=== PATIENT | female | born 1965 | race African-American/Black ===

== ENCOUNTER 2017-01-27 02:06 | Inpatient (IN) ==
[2017-01-27] MEDS ORDERED: ALUM/MAG/SIMETH/LIDO VISC 1:1 30 ML BOTTLE PO STA (03:26)
[2017-01-27] MEDS ORDERED: SODIUM CHLORIDE 0.9% 500 ML IV STA (03:26)
[2017-01-27] MEDS ORDERED: PANTOPRAZOLE 40 MG VIAL IV STA (03:26)
--- NOTE | 2017-01-27 03:28 | Emergency Department Note ---
Pérez Bhatia Brooke, am scribing for, and in the presence of, Perfecto Wheeler MD 03 :26. Summer Bhatia Charles R, MD, personally performed the services described in this documentation, ascribed by Yana Ortez in my presence, and it is both accurate and complete 328 . Arrival - Arrival Chief Complaint: Abdominal / Flank Pain Stated Complaint: abd pain ED Nursing Triage Note: tx from [facility] with poss gallstones Mode of Arrival: Stretcher Limitations: No Limitations Source: Patient, EMS, RN Notes Reviewed Time Seen by Provider: 01/27/17 02:12 - History of Present Illness HPI Narrative: Patient is a 51 year old female brought into the ED by EMS, from [facility], for further evaluation of possible gallstones. Patient is complaining of epigastric and middle abdominal pain that started tonight. Patient says she ate some banana pudding and took her medications, and about 15 minutes later, the pain started. She has never experienced this in the past. She denies any abdominal bloating, flatulence, or constipation. Patient has no other complaints. She has PMHx of HTN, diabetes, and "lung problems." Patient has home breathing treatments for the lung problems. Review of System - Review of System 12 point system: reviewed and no additional remarkable complaints except as stated - Review of System Constitutional: Absent: fever Respiratory: Absent: respiratory distress Gastrointestinal: Present: abdominal pain (middle and epigastric). Absent: constipation Skin: Absent: rash Medical,Surgical,& Family Hx - Social History Smoking Status: Never smoker Frequency of Alcohol Use: None Type of Drug Use: None Exam Vital Signs: Vital Signs Temperature 96.9 F L 01/27/17 02:07 Pulse Rate 93 H 01/27/17 02:07 Respiratory Rate 20 01/27/17 02:07 O2 Sat by Pulse Oximetry 99 01/27/17 02:07 - General General appearance: alert, in no apparent distress - Head Head exam: Present: atraumatic, normocephalic - Eye Eye exam: Present: normal appearance, PERRL, EOMI - ENT ENT exam: Present: normal exam - Neck Neck exam: Present: normal inspection - Chest Chest inspection: Present: normal inspection, symmetric chest wall rise - Respiratory Respiratory exam: Present: normal lung sounds bilaterally - Cardiovascular Cardiovascular exam: Present: regular rate, normal rhythm, normal heart sounds - Abdominal Exam Abdominal exam: Present: soft, tenderness (Epigatric and mid-abdomial tenderness ), hypoactive bowel sounds. Absent: distention - Extremities Exam Extremities exam: Present: pedal edema (+1 bilateral lower extremities) - Back Exam Back exam: Present: normal inspection - Neurological Exam Neurological exam: Present: alert, oriented X3 - Psychiatric Psychiatric exam: Present: normal affect, normal mood - Skin Skin exam: Present: warm, dry, intact, normal color Course - Consultations Consultation #1: Dr. Dominugez consult that he wants a gallbladder ultrasound done first before he admits the patient to the hospital Time: 03:28 Consultation #2: Patient has cholelithiasis on ultrasound spoke to Dr. Orlandoon is in place patient hospital for HIDA scan no antibiotic need to be given at this time per Dr. Dominguez Time: 05:44 Results - Labs CBC & BMP: 01/27/17 03:36 01/27/17 03:36 Lab Results: I have reviewed the patients labs Labs: Laboratory Tests 01/27/17 03:36 WBC 12.6 H RBC 4.79 MCV 76.6 L MCH 23 L MCHC 30.0 L Plt Count 430 H MPV 9.4 L Neut % (Auto) 81.8 H Lymph % (Auto) 11.9 L Neut # (Auto) 10.3 H Laboratory Tests 01/27/17 01/27/17 03:36 03:36 Potassium 3.4 L Creatinine 1.10 H Glucose 198 H Magnesium 1.7 L AST 190 H ALT 141 H Troponin I 0.048 H Globulin 3.7 H Albumin/Globulin Ratio 1.0 L Urine Blood Small Urine Urobilinogen < 2.0 H Disposition Clinical Impression: Abdominal pain, Biliary colic, Cholelithiasis Case discussed with: patient Disposition: Still a Patient Condition: Stable Time of Disposition: 05:45
[2017-01-27] MEDS ORDERED: ALUM/MAG/SIMETH/LIDO VISC 1:1 30 ML BOTTLE PO ONE (03:33)
[2017-01-27] MEDS ORDERED: PANTOPRAZOLE 40 MG VIAL IV ONE (03:33)
[2017-01-27 03:56] LABS: Basophils % 0.2 % (0.0-0.8); Hematocrit 36.7 VOL% (35.7-47.0); Immature Granulocytes % 0.6 %; Immature Granulocytes Absolute 0.07 #; Lymphocytes # 1.5 10*3/uL (1.4-4.0); Lymphocytes % 11.9 % (21.3-54.2); Mean Corpuscular Hemoglobin 23 PG (27-34); Mean Corpuscular Volume 76.6 FL (87-102); Mean Platelet Volume 9.4 FL (9.6-12.0); Monocytes # 0.7 10*3/uL (0.11-0.8); Monocytes % 5.5 % (1.7-12.7); Neutrophils # 10.3 10*3/uL (1.4-7.4); Neutrophils % 81.8 % (38.7-73.9); Platelet Count 430 T/CUMM (130-400); Red Blood Count 4.79 MC/CUMM (3.8-5.5); Red Cell Distribution Width 15.5 % (9.3-17.3); White Blood Count 12.6 T/CUMM (4-12)
[2017-01-27 03:59] LABS: Apearance,Urine CLEAR (Clear); Bacteria,Urine Occasional /HPF (Few); Bilirubin,Urine Negative (Negative); Blood, Urine Small mg/dL (Negative); Glucose,Urine (UA) >=500 mg/dL (Negative); Ketones,Urine 5 mg/dL (Negative); Mucus,Urine Occasional /LPF (Occasional); Nitrite,Urine Negative (Negative); Protein,Urine Negative; RBC,Urine 2 /HPF (0-4); Squamous Epithelial Cell,Urine Occasional /HPF (0-10); Urine Color Straw (Yellow); Urine Specific Gravity 1.033 (1.001-1.035); Urine Urobilinogen < 2.0 EU/DL (0.2-1.0); WBC,Urine 7 /HPF (0-6)
[2017-01-27 04:42] LABS: Albumin 3.9 G/DL (3.4-5.0); Bilirubin,Total 0.6 MG/DL (0.2-1.0); Calcium 8.9 MG/DL (8.5-10.1); Magnesium 1.7 MG/DL (1.8-2.4); Osmolality,Calculated 288.3 MOS/KG (273-304); Potassium 3.4 MMOL/L (3.5-5.1); Total Protein 7.6 G/DL (6.4-8.3); Troponin I Only 0.048 NG/ML (0.00-0.045)
[2017-01-27] MEDS ORDERED: POTASSIUM CHLORIDE 20 MEQ TABLET PO STA (05:44)
[2017-01-27] MEDS ORDERED: MAGNESIUM SULF RIDER 2 GM in PREMIX 1 EACH IV STA (05:44)
[2017-01-27] MEDS ORDERED: MAGNESIUM SULF RIDER 50 ML IV ONE (05:51)
[2017-01-27] MEDS ORDERED: POTASSIUM CHLORIDE 20 MEQ TABLET PO ONE (05:51)
[2017-01-27] MEDS ORDERED: ONDANSETRON 4 MG/2 ML VIAL IV PRN (06:49)
[2017-01-27] MEDS ORDERED: HYDROmorphone 2 MG/1 ML VIAL IV PRN (06:49)
[2017-01-27] MEDS ORDERED: GLUCAGON 1 MG VIAL IM PRN (06:49)
[2017-01-27] MEDS ORDERED: DEXTROSE 50% 25 GM/50 ML VIAL IV PRN (06:49)
[2017-01-27] MEDS ORDERED: ACETAMINOPHEN 325 MG TABLET PO PRN (06:49)
[2017-01-27] MEDS: SODIUM CHLORIDE 0.9% 1,000 ML IV SCH ×2 (07:11→17:10)
[2017-01-27] MEDS: INSULIN REGULAR 100 UNIT/ML SUBCUT SCH ×4 (07:30→21:13)
--- NOTE | 2017-01-27 08:31 | Ultrasound Report ---
History: Right upper quadrant pain. Gallbladder stone Date: 01/27/2017 Study: Gallbladder ultrasound Comparison exam: CT abdomen 01/27/2017 The study was also reviewed by [facility]. Real-time ultrasound images are captured and archived. The liver measures mildly enlarged at 18 cm length. There are minimally increased echoes throughout the hepatic parenchyma compatible with mild diffuse fatty infiltration of the liver. There is hepatopedal flow in the portal vein. There is no abnormal biliary dilatation. The common bile duct measures 5.2 mm diameter. There is a highly echogenic focus with posterior acoustic shadowing compatible with gallstone, measuring at least 3.4 cm maximum diameter. There is no gallbladder wall thickening or abnormal pericholecystic fluid. The pancreas is obscured by bowel gas. The right kidney measures 12.2 cm length and is without mass lesion or hydronephrosis. There is a punctate focus of increased echogenicity compatible with nephrocalcinosis in the mid to upper right kidney, measuring approximately 8 mm Impression: Cholelithiasis with negative sonographic Hagan sign and no gallbladder wall thickening Focal nephrocalcinosis right kidney Mild hepatomegaly. Fatty liver PROCEDURE INTERPRETED AT [facility] DEPARTMENT OF RADIOLOGY Final Report Signed by: Dr. Katerin Mccray
--- NOTE | 2017-01-27 08:39 | XRay Report ---
History: Right upper quadrant abdominal pain. Gallstone Date: 01/27/2017 Study: Chest x-ray AP portable Comparison exam: January 19, 2012 chest x-ray The cardiomediastinal silhouette and pulmonary vasculature are unremarkable. The lungs and pleural spaces are clear. The osseous structures are unremarkable. Impression: No acute cardiopulmonary process. No significant interval change PROCEDURE INTERPRETED AT [facility] DEPARTMENT OF RADIOLOGY Final Report Signed by: Dr. Katerin Mccray
--- NOTE | 2017-01-27 10:28 | Nuclear Medicine Report ---
History: Biliary colic Date: 01/27/2017 Study: Nuclear medicine hepatobiliary scan with gallbladder ejection fraction Comparison exam: No previous Following the IV administration of 5 mCi technetium 99m Choletec, there is homogeneous uptake of the radiotracer by the liver. There is visualization of duodenal activity at 5 minutes and of gallbladder activity at 15 minutes. Gallbladder ejection fraction was also measured for 40 minutes after the oral ingestion of 8 ounces of ensure. The gallbladder ejection fraction measures 100% Impression: Normal study to include gallbladder ejection fraction of 100% PROCEDURE INTERPRETED AT [facility] DEPARTMENT OF RADIOLOGY Final Report Signed by: Dr. Katerin Mccray
--- NOTE | 2017-01-27 10:40 | EKG Report ---
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
--- NOTE | 2017-01-27 10:40 | Cardiology Consult Note ---
History of Present Illness - Data of Consult Patient: new to practice - Consult Narrative History of present illness: Cardiology consult 51-year-old woman a banana pudding yesterday and 15 minutes later developed severe abdominal pain which she described as worse than labor pain. She feels better today but still has tenderness in the right upper quadrant to palpation. EKG shows sinus rhythm with late transition and ST-T wave changes. Chest x- ray is negative. Troponin is 0.048. The patient had normal coronary arteries and ejection fraction of 60% by cardiac cath January 20, [address] Vazquez. She denies exertional angina syncope or leg edema. She does have chronic dyspnea. She is a lifetime non-smoker and nondrinker. She has been told in the past that she has COPD by Dr. Fregoso. She does have chronic dyspnea. She is quite sedentary. She is a type II diabetic and takes glyburide and metformin. She also has chronic hypertension takes Lopressor, losartan and Norvasc. She also has GE reflux symptoms take Zantac daily. She denies melena. She denies any document history of peptic ulcer disease. Patient is followed at the [place] [facility]. Her mother is 67 years old and has hypertension diabetes and coronary stent her father is 73 and has hypertension and diabetes. Her brother is 49 and an alcoholic. Her only surgery was tonsillectomy. Lab data White count 12.6 hemoglobin 11.0 hematocrit 36.7 Sodium 141 potassium 3.4 chloride 103 CO2 20 BUN 17 creatinine 1.10 Glucose 198 magnesium 1.7 lipase 145 Troponin 0.0 40 Abdominal ultrasound showed gallstones and fatty infiltration of the liver. HIDA scan is pending. UA shows 7 white cells, 2 red cells, occasional bacteria and urine culture is pending. Blood pressure 150/80 pulse 96 and regular aspirations 18 bilateral arcus no xanthelasma flat neck veins no carotid bruit clear lungs. Rhythm is regular. No murmur or gallop. Abdomen obese soft and mildly tender in the right upper quadrant Femoral pulses 2+ without bruit distal pulses 2+ no edema Impression Gallstones with biliary colic HIDA scan is pending Normal coronary arteries and ejection fraction 60% by cardiac cath January 20, [address] Vazquez. No history of angina CHF or syncope. Chronic GE reflux on Zantac Lifetime non-smoker and nondrinker Type 2 diabetes on glyburide and metformin Chronic hypertension Chronic dyspnea Sedentary 5 feet 9 inches tall, 255 pounds UA shows some white cells and red cells and occasional bacteria, urine culture pending Trivial troponin 0.048 I do not suspect that this is a cardiac event Plan Echo Repeat troponin HIDA scan pending Urine culture pending CC: Renan Dominguez MD - Home Medications and Allergies Allergies/Adverse Reactions: Allergies Allergy/AdvReac Type Severity Reaction Status Date / Time No Known Allergies Allergy Unverified 01/27/17 06:19 Medical,Surgical,& Family Hx - Social History Smoking Status: Never smoker Frequency of Alcohol Use: None Type of Drug Use: None Physical Examination Vital Signs Temp Pulse Resp BP Pulse Ox 96.9 F L 93 H 20 143/85 99 01/27/17 02:07 01/27/17 02:07 01/27/17 02:07 01/27/17 02:07 01/27/17 02:07 Result/EKG - Labs CBC & BMP: 01/27/17 03:36 01/27/17 03:36
--- NOTE | 2017-01-27 11:27 | General Surg History&Physical ---
Assessment and Plan (1) Abdominal pain Status: Acute Assessment and plan: Cholelithiasis noted, but no evidence of cholecystitis or obstruction on current imaging. Patient is appears to be more symptomatic in the epigastric region and with history of her suspect possible gastritis. Will consult gastroenterology for further evaluation and recommendations. We appreciate their input. Can consider advancing diet as try once we know with gastroenterology plan is. We will also check H pylori and fecal occult blood. Current Visit: Yes (2) Hepatomegaly Status: Acute Assessment and plan: Hepatomegaly instantly noted on ultrasound with fatty infiltrate. AST and ALT are elevated on routine screening. We will check hepatitis panel and HIV as well. Gastroenterology input additionally appreciated. Current Visit: Yes (3) Elevated troponin Status: Acute Assessment and plan: Marginal elevation. Patient is asymptomatic. We will trend cardiac enzymes and appreciate cardiology consultation. Current Visit: Yes (4) Anemia Status: Acute Assessment and plan: Patient reports history of iron deficiency anemia and takes iron supplementation at home. Current anemia is microcytic hypochromic. Continue iron and vitamin C supplementation. Follow up on GI recommendations as above. Monitor. Anemia profile in am. Current Visit: Yes Qualifiers: Iron deficiency anemia type: unspecified iron deficiency (5) Diabetes mellitus type 2 in obese Status: Acute Assessment and plan: Continue glyburide and hold metformin. Low-dose sliding scale Current Visit: Yes (6) Hypertension Status: Acute Assessment and plan: Resume home meds and monitor Current Visit: Yes (7) COPD (chronic obstructive pulmonary disease) Status: Acute Assessment and plan: Resume home meds and monitor. No evidence of flare. Current Visit: Yes (8) Prophylactic measure Status: Acute Assessment and plan: #1 DVT prophylaxis: JJ nagel. Hold chemoprophylaxis with current anemia. #2 GI prophylaxis PPI daily #3 dispo: pending further assessement Current Visit: Yes History of Present Illness Chief complaint: Epigastric pain History of present illness: Ms. Hunt is a 51 year old female with past medical history of hypertension, diabetes mellitus, GERD, and COPD who reports acute onset of severe abdominal pain last night which particular ER visit. Patient reports she was eating banana pudding after which she developed a severe epigastric pain which radiated to the right upper quadrant, right flank and back. Patient reports associated nausea without vomiting or diarrhea; no fever, chills, riders, arthralgias, dysuria, hematuria, urinary urgency or frequency. No change in bowels as of late including no diarrhea, constipation, hematochezia, melena, or bright red blood per rectum. She reports no increase in her reflux symptoms. She intermittently takes ibuprofen 600 mg for migraine headaches which he last took approximately 2 weeks ago. She denies any other chronic NSAID use. No history of similar symptoms. Home Medications Medication Instructions Recorded Confirmed Type Aspirin [Aspirin EC] 81 mg PO DAILY 01/27/17 01/27/17 History Ferrous Sulfate 325 mg PO DAILY 01/27/17 01/27/17 History Losartan [Cozaar] 50 mg PO BID 01/27/17 01/27/17 History Lovastatin 10 mg PO BEDTIME 01/27/17 01/27/17 History Metformin HCl 1,000 mg PO BID 01/27/17 01/27/17 History Metoprolol Tartrate 50 mg PO BID 01/27/17 01/27/17 History Trazodone HCl 100 mg PO BEDTIME 01/27/17 01/27/17 History amLODIPine [Norvasc] 10 mg PO DAILY 01/27/17 01/27/17 History glyBURIDE [Glyburide] 10 mg PO BID 01/27/17 01/27/17 History Allergies Allergy/AdvReac Type Severity Reaction Status Date / Time No Known Allergies Allergy Unverified 01/27/17 06:19 Medical,Surgical,& Family Hx - Medical History Cardio: History of: Hypertension Neurology: History of: Migraine Endocrine: History of: Diabetes Mellitus (NIDDM) Respiratory: History of: COPD - Surgical History Cardiac Surgeries: Sugical HX of: Cardiac Catheterization HEENT Surgeries: Surgical HX of: Tonsilectomy & Adenoidectomy - Family History Family History: noncontributory - Social History Smoking Status: Never smoker Frequency of Alcohol Use: None Type of Drug Use: None Functional capacity: independent ambulation Exam - Constitutional Vitals: Period Temp Pulse Resp BP Sys/Balderrama Pulse Ox Last 24 Hr 97.4 F-98.0 F 85-102 18-20 137-181/67-103 96-99 General appearance: no acute distress, over weight - Head Head exam: Present: normal inspection, normocephalic, atraumatic - Eye Eye exam: Absent: conjunctival injection, scleral icterus - Neck Neck exam: Present: trachea midline - Respiratory Respiratory exam: Present: clear to auscultation bilaterally - Cardiovascular Cardiovascular exam: Present: RRR - GI/Abdominal GI/Abdominal exam: Present: normal bowel sounds, tenderness (upper abdomen - worst epigastric), soft. Absent: distended, firm, guarding, Hagan's sign - Extremities Exam Extremities exam: Absent: calf tenderness, edema - Back Exam Back exam: Absent: CVA tenderness (L), CVA tenderness (R), vertebral tenderness - Neurological Exam Neurological exam: Present: alert, oriented X3 Speech: Present: normal - Skin Skin exam: Present: normal color, warm. Absent: rash - Constitutional Constitutional: Present: as per HPI. Absent: anorexia, weight gain, weight loss - EENT Nose, mouth and throat: Absent: dysphagia, hoarseness - Cardiovascular Cardiovascular: Present: dyspnea (chronic - unchanged). Absent: chest pain at rest, chest pain with activity, orthopnea, palpitations, syncope - Respiratory Respiratory: Present: as per HPI. Absent: hemoptysis - Gastrointestinal Gastrointestinal: Present: as per HPI, early satiety. Absent: odynophagia - Genitourinary Genitourinary: Present: as per HPI - Musculoskeletal Musculoskeletal: Present: as per HPI Hematologic/Lymphatic: Absent: easy bleeding, easy bruising Results - Labs CBC & BMP: 01/27/17 03:36 01/27/17 03:36 Labs: HIDA unremarkable - Diagnostic Findings Procedure: Ultrasound: image reviewed by me, report reviewed by me ( cholelithiasis without evidence of obstruction; hepatomegaly with steatosis)
[2017-01-27] MEDS ORDERED: ALBUTEROL 0.63 MG/3 ML NEB RESP TX PRN (11:35)
[2017-01-27] MEDS: LOSARTAN 50 MG TABLET PO SCH ×2 (12:25→21:15)
[2017-01-27] MEDS: FERROUS SULFATE 325 MG TABLET PO SCH ×2 (12:25→21:15)
[2017-01-27] MEDS: glyBURIDE 5 MG TABLET PO SCH ×2 (12:25→21:20)
[2017-01-27] MEDS: DOCUSATE SODIUM 100 MG CAPSULE PO SCH ×2 (12:25→21:15)
[2017-01-27] MEDS: ASCORBIC ACID 500 MG TABLET PO SCH ×2 (12:25→21:15)
[2017-01-27] MEDS: PANTOPRAZOLE 40 MG VIAL IV SCH (12:25)
[2017-01-27] MEDS: amLODIPine 10 MG TABLET PO SCH (12:26)
[2017-01-27 13:17] LABS: HIV Antigen/Antibody Result Nonreactive (Nonreactive); Hepatitis A Ab IgM Quant 0.04 Index; Hepatitis A Ab IgM Result Negative (Negative); Hepatitis B Core IgM Quant 0.18 Index; Hepatitis B Core IgM Result Negative (Negative); Hepatitis B Surface Ag Quant < 0.10 Index; Hepatitis B Surface Ag Result Negative (Negative); Hepatitis C Virus Ab Quant 0.12 Index; Hepatitis C Virus Ab Result Negative (Negative)
--- NOTE | 2017-01-27 14:21 | Gastrointestinal Consult Note ---
Assessment and Plan (1) Abdominal pain Status: Acute Assessment and plan: 01/27-sudden onset last night of abdominal pain radiating to back with associated nausea and vomiting. Findings on admission of cholelithiasis without acute cholecystitis, hepatic steatosis. Elevated transaminases, negative hepatitis panel. Normal HIDA scan today. No prior endoscopy. History of anemia on iron replacement therapy. Plan an addendum to followed by Dr. Mccray. Current Visit: Yes History of Present Illness Chief complaint: Abdominal pain History of present illness: Ms. Hunt is a 51 year old female who was admitted to the hospital with onset of severe abdominal pain, nausea and vomiting. Patient states that she was in her usual state of health on yesterday and was doing well until last night. She states that on yesterday she went to [employer] and following that she went to her daughter's house for [employer]. She ate lunch and went home later that evening. Following eating some banana pudding at home, she states shortly after that she began having severe onset of abdominal pain with nausea and vomiting. She states the pain started in the right upper quadrant radiated around to her right back. She denies any coffee-ground or hematemesis associated with this. She denies any diarrhea. Denies any fever or chills. She states that she has never had pain this severe and states it was much worse than labor pains she has had in the past. She denies any melena or hematochezia. Denies any recent weight loss. She does have a history of reflux and states that recently she has had an increase in these symptoms. She denies any dysphagia or odynophagia. She denies any prior history of PUD and has never had endoscopy done in the past. She denies routine NSAID use other than occasional ibuprofen use. She was found on admission to have cholelithiasis without evidence of cholecystitis with a common bile duct of 5.2. Ultrasound also noted to to show hepatic steatosis. Hepatitis panel was negative. She was noted on HIDA scan this morning to have a normal EF of 100%. Her transaminases were also elevated on admission however patient denies a prior history of this. She does have a history of anemia and is on iron replacement therapy daily. Hemoglobin is currently 11. Home Medications Medication Instructions Recorded Confirmed Type Aspirin [Aspirin EC] 81 mg PO DAILY 01/27/17 01/27/17 History Ferrous Sulfate 325 mg PO DAILY 01/27/17 01/27/17 History Losartan [Cozaar] 50 mg PO BID 01/27/17 01/27/17 History Lovastatin 10 mg PO BEDTIME 01/27/17 01/27/17 History Metformin HCl 1,000 mg PO BID 01/27/17 01/27/17 History Metoprolol Tartrate 50 mg PO BID 01/27/17 01/27/17 History Trazodone HCl 100 mg PO BEDTIME 01/27/17 01/27/17 History amLODIPine [Norvasc] 10 mg PO DAILY 01/27/17 01/27/17 History glyBURIDE [Glyburide] 10 mg PO BID 01/27/17 01/27/17 History Allergies Allergy/AdvReac Type Severity Reaction Status Date / Time No Known Allergies Allergy Unverified 01/27/17 06:19 Medical,Surgical,& Family Hx - Medical History Cardio: History of: Hypertension Neurology: History of: Migraine HEENT: History of: Eye Problem (chronic "eye itis"), Glaucoma Endocrine: History of: Diabetes Mellitus (NIDDM), Dyslipidemia Respiratory: History of: Bronchitis (chronic), COPD Gastrointestinal: History of: GERD - Surgical History Cardiac Surgeries: Sugical HX of: Cardiac Catheterization HEENT Surgeries: Surgical HX of: Tonsilectomy & Adenoidectomy - Family History Family History: Reports;: Family Cancer, Family Diabetes, Family Heart Disease, Family Hypertension, Family Stroke, Additional Family History (Dementia) - Social History Smoking Status: Never smoker Frequency of Alcohol Use: None Type of Drug Use: None 12 point system: reviewed and no additional remarkable complaints except as stated - Constitutional Constitutional: Present: as per HPI - EENT Eyes: Present: as per HPI Ears: Present: as per HPI Nose, mouth and throat: Present: as per HPI - Cardiovascular Cardiovascular: Present: as per HPI - Respiratory Respiratory: Present: as per HPI - Gastrointestinal Gastrointestinal: Present: as per HPI, abdominal pain, nausea, vomiting - Genitourinary Genitourinary: Present: as per HPI - Musculoskeletal Musculoskeletal: Present: as per HPI - Neurological Neurological: Present: as per HPI - Psychiatric Psychiatric: Present: as per HPI - Endocrine Endocrine: Present: as per HPI - Hematologic/Lymphatic Hematologic/Lymphatic: Present: as per HPI Exam - Constitutional Vitals: Period Temp Pulse Resp BP Sys/Balderrama Pulse Ox Last 24 Hr 97.4 F-98.0 F 85-102 18-20 137-181/67-103 96-99 General appearance: normal weight, no acute distress - Head Head exam: Present: normal inspection, normocephalic - Eye Eye exam: Present: other (Lids and conjunctive are unremarkable). Absent: scleral icterus - ENT ENT exam: Present: normal exam, normal oropharynx - Neck Neck exam: Present: normal inspection - Respiratory Respiratory exam: Present: clear to auscultation bilaterally. Absent: rales, rhonchi, wheezes - Cardiovascular Cardiovascular exam: Present: regular rate and rhythm. Absent: diastolic murmur , JVD, systolic murmur - GI/Abdominal GI/Abdominal exam: Present: normal bowel sounds, tenderness, soft. Absent: ascites, distended, mass, organomegaly - Extremities Exam Extremities exam: Present: normal inspection, full ROM - Back Exam Back exam: Present: normal inspection - Neurological Exam Neurological exam: Present: alert, oriented X3 - Psychiatric Psychiatric exam: Present: normal affect, normal mood - Skin Skin exam: Present: normal color, warm, dry Results - Labs CBC & BMP: 01/27/17 03:36 01/27/17 03:36 Lab Results: I have reviewed the past 24 hour labs - Diagnostic Findings Procedure: Ultrasound: report reviewed by me
[2017-01-27 16:00] LABS: Troponin I Only 0.049 NG/ML (0.00-0.045)
[2017-01-27] MEDS: LOVASTATIN 20 MG TABLET PO SCH (21:15)
[2017-01-27] MEDS: METOPROLOL TARTRATE 50 MG TABLET PO SCH (21:16)
[2017-01-27] MEDS: FLUTICASONE/SALMETEROL 500-50 DISKUS 14 DOSE INH SCH (21:16)
[2017-01-28] MEDS: SODIUM CHLORIDE 0.9% 1,000 ML IV SCH (01:59)
[2017-01-28 04:53] LABS: Basophils % 0.2 % (0.0-0.8); Eosinophils % 0.6 % (0.00-10.9); Hematocrit 31.2 VOL% (35.7-47.0); Hemoglobin 9.2 GM/DL (12.0-16.0); Immature Granulocytes % 0.2 %; Immature Granulocytes Absolute 0.01 #; Lymphocytes % 40.9 % (21.3-54.2); Mean Corpuscular HGB Conc 29.5 GM/DL (32-36); Mean Corpuscular Hemoglobin 23 PG (27-34); Mean Corpuscular Volume 76.8 FL (87-102); Mean Platelet Volume 9.9 FL (9.6-12.0); Monocytes # 0.4 10*3/uL (0.11-0.8); Neutrophils # 2.5 10*3/uL (1.4-7.4); Neutrophils % 50.1 % (38.7-73.9); Platelet Count 339 T/CUMM (130-400); Red Blood Count 4.06 MC/CUMM (3.8-5.5); Red Cell Distribution Width 15.9 % (9.3-17.3)
[2017-01-28 04:56] LABS: Basophils % 0.4 % (0.0-0.8); Eosinophils % 0.6 % (0.00-10.9); Hematocrit 31.6 VOL% (35.7-47.0); Hemoglobin 9.4 GM/DL (12.0-16.0); Immature Granulocytes % 0.2 %; Immature Granulocytes Absolute 0.01 #; Lymphocytes # 2.1 10*3/uL (1.4-4.0); Lymphocytes % 40.9 % (21.3-54.2); Mean Corpuscular HGB Conc 29.7 GM/DL (32-36); Mean Corpuscular Hemoglobin 23 PG (27-34); Mean Corpuscular Volume 77.5 FL (87-102); Mean Platelet Volume 9.9 FL (9.6-12.0); Monocytes # 0.5 10*3/uL (0.11-0.8); Monocytes % 8.6 % (1.7-12.7); Neutrophils # 2.6 10*3/uL (1.4-7.4); Neutrophils % 49.3 % (38.7-73.9); Platelet Count 343 T/CUMM (130-400); Red Blood Count 4.08 MC/CUMM (3.8-5.5); Red Cell Distribution Width 15.9 % (9.3-17.3); White Blood Count 5.2 T/CUMM (4-12)
[2017-01-28 05:26] LABS: Albumin 3.2 G/DL (3.4-5.0); Bilirubin,Total 0.7 MG/DL (0.2-1.0); Calcium 7.9 MG/DL (8.5-10.1); Magnesium 2.1 MG/DL (1.8-2.4); Osmolality,Calculated 282.3 MOS/KG (273-304); Potassium 3.8 MMOL/L (3.5-5.1); Total Protein 6.3 G/DL (6.4-8.3)
[2017-01-28 06:14] LABS: Sedimentation Rate-Westergren 40 MM/HR (0-20)
[2017-01-28 06:22] LABS: Folate 10.5 NG/ML (5.4-24.0); Vitamin B12 513 PG/ML (211-911)
--- NOTE | 2017-01-28 08:01 | XRay Report ---
Exam: XR chest 2V Date: 01/28/2017 4:00 AM Indication: Shortness of breath Comparison: 01/27/2017 Technical: PA lateral Findings: Mild prominence the cardiac silhouette on the mid inspiratory exam. No obvious consolidating infiltrate or effusion. External cardiac leads are present. Impression: 1. No acute cardiopulmonary pathology. PROCEDURE INTERPRETED AT [facility] DEPARTMENT OF RADIOLOGY Final Report Signed by: Dr. Asaf Garcia
--- NOTE | 2017-01-28 08:02 | XRay Report ---
Exam: XR abdomen 2V Date: 01/28/2017 4:00 AM Comparison: None Indication: Abdominal pain Findings: Lung bases are unremarkable. The liver and spleen are unremarkable Renal contours are partially obscured The bony structures are intact No obvious pneumoperitoneum Nonspecific GI pattern. Impression: 1. Nonspecific GI pattern. Scattered stool throughout the colon. PROCEDURE INTERPRETED AT [facility] DEPARTMENT OF RADIOLOGY Final Report Signed by: Dr. Asaf Garcia
[2017-01-28 08:56] LABS: Hemoglobin A1 (Alkaline) 97.2 % (96.5-98.5); Hemoglobin A2 (Alkaline) 2.8 % (1.5-3.5)
--- NOTE | 2017-01-28 09:24 | Cardiology Progress Note ---
Anthony Bhatia April RN, am scribing for, and in the presence of, Alexsandre Zendejas MD 09:23. Assessment and Plan (1) Abdominal pain Status: Acute Current Visit: Yes (2) Diabetes mellitus type 2 in obese Status: Chronic Current Visit: Yes (3) Hypertension Status: Chronic Current Visit: Yes Cardiology - PN: Subj Interval history: Cardiology note Building Services Technician: Dr. Vazquez in the remote past Ms. Hunt is seen resting in bed no acute distress. She reports having some occasional chest tightness, but she thinks this is associated with her productive cough. She reports her abdominal discomfort is almost completely gone. Denies shortness of breath or palpitations. nurse monitoring currently shows sinus rhythm with heart rates in the 70s. O2 sat 95% Blood pressure 134/73 EKG done yesterday showed sinus rhythm heart rate of 86 HIDA scan done yesterday was read as a normal study Lab data: White count 5.2 hemoglobin 9.4 hematocrit 31.6 Sodium 141 potassium 3.8 chloride 104 CO2 28 BUN 13 creatinine 0.70 magnesium 2.1 Troponin 0.049 Impression: Gallstones with biliary colic Normal coronary arteries and ejection fraction 60% by cardiac cath January 2012 Dr. Vazquez--no history of angina, CHF or syncope Chronic GE reflux on Zantac Lifetime non-smoker nondrinker Type 2 diabetes on glyburide/metformin Chronic hypertension Chronic dyspnea Sedentary 5 feet 9 inches tall, 255 pounds Urine culture still pending Trivial troponin 0.048 and 0.049 Cardiology addendum Patient examined, chart reviewed and discussed with nurse Arely Cruz RN. Pain is clearly atypical. She is a longtime diabetic and has a strong family history for CAD. Plan Exercise cardiac stress test 8 AM tomorrow Exam (Progress Note) - Constitutional Vitals: Period Temp Pulse Resp BP Sys/Balderrama Pulse Ox Last 24 Hr 97.4 F-98.1 F 61-85 17-20 114-142/67-80 95-100 General appearance: no acute distress, morbidly obese - Head Head exam: Absent: abrasion, hematoma - Eye Eye exam: Absent: periorbital swelling, laceration to eyelids - Respiratory Respiratory exam: Present: clear to auscultation bilaterally. Absent: accessory muscle use, chest wall tenderness - Cardiovascular Cardiovascular exam: Present: regular rate and rhythm - GI/Abdominal GI/Abdominal exam: Present: normal bowel sounds, tenderness, soft. Absent: distended - Extremities Exam Extremities exam: Absent: edema - Neurological Exam Neurological exam: Present: alert, oriented X3 - Psychiatric Psychiatric exam: Present: normal affect, normal mood - Skin Skin exam: Present: warm, dry Result/EKG - Labs CBC & BMP: 01/28/17 03:58 01/28/17 03:58 Lab Results: I have reviewed the past 24 hour labs Labs: Laboratory Results - last 24 hr 01/27/17 01/27/17 01/27/17 11:22 11:45 11:45 WBC RBC Hgb Hct MCV MCH MCHC RDW Plt Count MPV Neut % (Auto) Lymph % (Auto) [place] % (Auto) Eos % (Auto) Baso % (Auto) Neut # (Auto) Lymph # (Auto) [place] # (Auto) Eos # (Auto) Baso # (Auto) Immature Gran % Nucleated RBC % Immature Gran # Nucleated RBCs # ESR Westergren Absolute Retic Percent Retic Retic Hgb Equivalent Sodium Potassium Chloride Carbon Dioxide Anion Gap BUN Creatinine GFR Calculation BUN/Creatinine Ratio Glucose POC Glucose 161 H Hemoglobin A1c 7.7 H Calculated Osmolality Calcium Magnesium Ferritin Total Bilirubin AST ALT Alkaline Phosphatase Total Creatine Kinase CK-MB (CK-2) Troponin I Total Protein Albumin Globulin Albumin/Globulin Ratio Vitamin B12 Folate Hepatitis A IgM Ab Negative Hep Bs Antigen Negative Hep B Core IgM Ab Negative Hepatitis C Antibody Negative HIV 1&2 Antigen & Ab Nonreactive HOPE (IgG-AHG) HOPE, Polyspecific 01/27/17 01/27/17 01/27/17 15:29 17:23 21:06 WBC RBC Hgb Hct MCV MCH MCHC RDW Plt Count MPV Neut % (Auto) Lymph % (Auto) [place] % (Auto) Eos % (Auto) Baso % (Auto) Neut # (Auto) Lymph # (Auto) [place] # (Auto) Eos # (Auto) Baso # (Auto) Immature Gran % Nucleated RBC % Immature Gran # Nucleated RBCs # ESR [place] Absolute Retic Percent Retic Retic Hgb Equivalent Sodium Potassium Chloride Carbon Dioxide Anion Gap BUN Creatinine GFR Calculation BUN/Creatinine Ratio Glucose POC Glucose 96 145 H Hemoglobin A1c Calculated Osmolality Calcium Magnesium Ferritin Total Bilirubin AST ALT Alkaline Phosphatase Total Creatine Kinase 186 CK-MB (CK-2) 1.7 Troponin I 0.049 H Total Protein Albumin Globulin Albumin/Globulin Ratio Vitamin B12 Folate Hepatitis A IgM Ab Hep Bs Antigen Hep B Core IgM Ab Hepatitis C Antibody HIV 1&2 Antigen & Ab HOPE (IgG-AHG) HOPE, Polyspecific 01/28/17 01/28/17 01/28/17 03:58 03:58 03:58 WBC 5.0 D 5.2 RBC 4.06 4.08 Hgb 9.2 L 9.4 L Hct 31.2 L 31.6 L MCV 76.8 L 77.5 L MCH 23 L 23 L MCHC 29.5 L 29.7 L RDW 15.9 15.9 Plt Count 339 D 343 MPV 9.9 9.9 Neut % (Auto) 50.1 49.3 Lymph % (Auto) 40.9 40.9 [place] % (Auto) 8.0 8.6 Eos % (Auto) 0.6 0.6 Baso % (Auto) 0.2 0.4 Neut # (Auto) 2.5 2.6 Lymph # (Auto) 2.0 2.1 [place] # (Auto) 0.4 0.5 Eos # (Auto) 0.0 0.0 Baso # (Auto) 0.0 0.0 Immature Gran % 0.2 0.2 Nucleated RBC % 0.0 0.0 Immature Gran # 0.01 0.01 Nucleated RBCs # 0.00 0.00 ESR Westergren 40 H Absolute Retic 0.1 Percent Retic 1.5 Retic Hgb Equivalent 24.8 L Sodium 141 Potassium 3.8 Chloride 104 Carbon Dioxide 28 Anion Gap 12.8 BUN 10 Creatinine 0.70 GFR Calculation 155 BUN/Creatinine Ratio 14.00 Glucose 148 H POC Glucose Hemoglobin A1c Calculated Osmolality 282.3 Calcium 7.9 L Magnesium 2.1 Ferritin Total Bilirubin 0.70 AST 34 ALT 79 H Alkaline Phosphatase 83 Total Creatine Kinase CK-MB (CK-2) Troponin I Total Protein 6.3 L Albumin 3.2 L Globulin 3.1 Albumin/Globulin Ratio 1.0 L Vitamin B12 Folate Hepatitis A IgM Ab Hep Bs Antigen Hep B Core IgM Ab Hepatitis C Antibody HIV 1&2 Antigen & Ab HOPE (IgG-AHG) HOPE, Polyspecific 01/28/17 01/28/17 01/28/17 03:58 03:58 03:58 WBC RBC Hgb Hct MCV MCH MCHC RDW Plt Count MPV Neut % (Auto) Lymph % (Auto) [place] % (Auto) Eos % (Auto) Baso % (Auto) Neut # (Auto) Lymph # (Auto) [place] # (Auto) Eos # (Auto) Baso # (Auto) Immature Gran % Nucleated RBC % Immature Gran # Nucleated RBCs # ESR Westergren Absolute Retic Percent Retic Retic Hgb Equivalent Sodium Potassium Chloride Carbon Dioxide Anion Gap BUN Creatinine GFR Calculation BUN/Creatinine Ratio Glucose POC Glucose Hemoglobin A1c Calculated Osmolality Calcium Magnesium Ferritin 12.0 Total Bilirubin AST ALT Alkaline Phosphatase Total Creatine Kinase CK-MB (CK-2) Troponin I Total Protein Albumin Globulin Albumin/Globulin Ratio Vitamin B12 513 Folate 10.5 Hepatitis A IgM Ab Hep Bs Antigen Hep B Core IgM Ab Hepatitis C Antibody HIV 1&2 Antigen & Ab HOPE (IgG-AHG) Negative HOPE, Polyspecific Negative 01/28/17 06:49 WBC RBC Hgb Hct MCV MCH MCHC RDW Plt Count MPV Neut % (Auto) Lymph % (Auto) [place] % (Auto) Eos % (Auto) Baso % (Auto) Neut # (Auto) Lymph # (Auto) [place] # (Auto) Eos # (Auto) Baso # (Auto) Immature Gran % Nucleated RBC % Immature Gran # Nucleated RBCs # ESR [place] Absolute Retic Percent Retic Retic Hgb Equivalent Sodium Potassium Chloride Carbon Dioxide Anion Gap BUN Creatinine GFR Calculation BUN/Creatinine Ratio Glucose POC Glucose 181 H Hemoglobin A1c Calculated Osmolality Calcium Magnesium Ferritin Total Bilirubin AST ALT Alkaline Phosphatase Total Creatine Kinase CK-MB (CK-2) Troponin I Total Protein Albumin Globulin Albumin/Globulin Ratio Vitamin B12 Folate Hepatitis A IgM Ab Hep Bs Antigen Hep B Core IgM Ab Hepatitis C Antibody HIV 1&2 Antigen & Ab HOPE (IgG-AHG) HOPE, Polyspecific - EKG EKG results: interpreted by me EKG shows: sinus rhythm Aashish Bhatia Thomas, MD, personally performed the services described in this documentation, ascribed by Arely Cruz RN in my presence, and it is both accurate and complete 923 .
--- NOTE | 2017-01-28 09:42 | Gastrointestinal Progress Note ---
Assessment and Plan (1) Abdominal pain Status: Acute Assessment and plan: 01/28-Abd pain resolved, no nausea or vomiting. LFTs trended down to near normal range. For stress test tomorrow. Plan and addendum to follow by DR Mccray. 01/27-sudden onset last night of abdominal pain radiating to back with associated nausea and vomiting. Findings on admission of cholelithiasis without acute cholecystitis, hepatic steatosis. Elevated transaminases, negative hepatitis panel. Normal HIDA scan today. No prior endoscopy. History of anemia on iron replacement therapy. Plan an addendum to followed by Dr. Mccray. Current Visit: Yes Gastroenterology - PN: Subj Interval history: CC: Abd pain Pt is seen, awake and alert. States she rested well overnight and is feeling better today. She denies any abdominal pain, nausea or vomiting. Her LFTs are improved today as well and are unremarkable other than mildly elevated ALT. Her hemoglobin is noted to be down at 9.4 with no reports of overt bleeding. Abdomen is soft, nontender. Cardiology is following for chest pain/discomfort and noted plans for stress test tomorrow morning. She does have a mildly elevated troponin level still noted. ROS: Denies SOB or chest pain at present time Exam (Progress Note) - Constitutional Vitals: Period Temp Pulse Resp BP Sys/Balderrama Pulse Ox Last 24 Hr 97.4 F-98.1 F 61-85 17-20 114-142/67-80 95-100 - Other Additional findings: General appearance: normal weight, no acute distress - Head Head exam: Present: normal inspection, normocephalic - Eye Eye exam: Present: other (Lids and conjunctive are unremarkable). Absent: scleral icterus - ENT ENT exam: Present: normal exam, normal oropharynx - Neck Neck exam: Present: normal inspection - Respiratory Respiratory exam: Present: clear to auscultation bilaterally. Absent: rales, rhonchi, wheezes - Cardiovascular Cardiovascular exam: Present: regular rate and rhythm. Absent: diastolic murmur , JVD, systolic murmur - GI/Abdominal GI/Abdominal exam: Present: normal bowel sounds, tenderness, soft. Absent: ascites, distended, mass, organomegaly - Extremities Exam Extremities exam: Present: normal inspection, full ROM - Back Exam Back exam: Present: normal inspection - Neurological Exam Neurological exam: Present: alert, oriented X3 - Psychiatric Psychiatric exam: Present: normal affect, normal mood - Skin Skin exam: Present: normal color, warm, dry Results - Labs CBC & BMP: 01/28/17 03:58 01/28/17 03:58 Lab Results: I have reviewed the past 24 hour labs
[2017-01-28] MEDS ORDERED: GLUCAGON 1 MG VIAL IM PRN (09:52)
[2017-01-28] MEDS ORDERED: DEXTROSE 50% 25 GM/50 ML VIAL IV PRN (09:52)
[2017-01-28] MEDS: INSULIN REGULAR 100 UNIT/ML SUBCUT SCH ×4 (10:03→22:30)
[2017-01-28] MEDS: ASPIRIN EC 81 MG TABLET PO SCH (10:05)
[2017-01-28] MEDS: FLUTICASONE/SALMETEROL 500-50 DISKUS 14 DOSE INH SCH ×2 (10:05→22:36)
[2017-01-28] MEDS: LOSARTAN 50 MG TABLET PO SCH ×2 (10:05→22:32)
[2017-01-28] MEDS: glyBURIDE 5 MG TABLET PO SCH ×2 (10:05→22:32)
[2017-01-28] MEDS: DOCUSATE SODIUM 100 MG CAPSULE PO SCH ×2 (10:05→22:36)
[2017-01-28] MEDS: FERROUS SULFATE 325 MG TABLET PO SCH ×2 (10:10→22:31)
[2017-01-28] MEDS: METOPROLOL TARTRATE 50 MG TABLET PO SCH ×2 (10:11→22:33)
[2017-01-28] MEDS: amLODIPine 10 MG TABLET PO SCH (10:11)
[2017-01-28] MEDS: ASCORBIC ACID 500 MG TABLET PO SCH ×2 (10:11→22:34)
[2017-01-28] MEDS: PANTOPRAZOLE 40 MG VIAL IV SCH (10:12)
--- NOTE | 2017-01-28 10:31 | General Surgery Progress Note ---
Assessment and Plan (1) Abdominal pain Status: Acute Assessment and plan: Cholelithiasis noted, but no evidence of cholecystitis or obstruction on current imaging. LFT have normalized. Leukocytosis resolved. Symptoms much improved. Pt is passing her bowels. Appetite present - has been NPO but will initiate diet now. Monitor. Current Visit: Yes (2) Hepatomegaly Status: Acute Assessment and plan: LFT normalized. CASTRO. Appreciate gastroenterology recs. Hep panel and HIV negative. Current Visit: Yes (3) Elevated troponin Status: Acute Assessment and plan: Marginal elevation persists. Asymptomatic. Stress planned for 8am. Current Visit: Yes (4) Anemia Status: Acute Assessment and plan: H/H stable. Anemia profile in progress. Current Visit: Yes Qualifiers: Iron deficiency anemia type: unspecified iron deficiency (5) Diabetes mellitus type 2 in obese Status: Chronic Assessment and plan: Continue glyburide and hold metformin. Low-dose sliding scale Current Visit: Yes (6) Hypertension Status: Chronic Assessment and plan: Resume home meds and monitor Current Visit: Yes (7) COPD (chronic obstructive pulmonary disease) Status: Acute Assessment and plan: Resume home meds and monitor. No evidence of flare. Current Visit: Yes (8) Prophylactic measure Status: Acute Assessment and plan: #1 DVT prophylaxis: JJ hose. Hold chemoprophylaxis with current anemia. #2 GI prophylaxis PPI daily #3 dispo: anticipate d/c home after stress test tomorrow Current Visit: Yes Subjective Patient reports: Present: feels better, voiding w/o difficulty, bowel movement, afebrile. Absent: nausea, vomiting, shortness of breath Exam - Constitutional Vitals: Period Temp Pulse Resp BP Sys/Balderrama Pulse Ox Last 24 Hr 97.4 F-98.1 F 61-85 17-20 114-142/67-80 95-100 General appearance: no acute distress, over weight - Head Head exam: Present: normal inspection, normocephalic - Eye Eye exam: Absent: conjunctival injection, scleral icterus - Respiratory Respiratory exam: Present: clear to auscultation bilaterally - Cardiovascular Cardiovascular exam: Present: RRR - GI/Abdominal GI/Abdominal exam: Present: normal bowel sounds, tenderness (minimal epigastric tenderness), soft. Absent: Hagan's sign - Extremities Exam Extremities exam: Absent: calf tenderness, edema - Neurological Exam Neurological exam: Present: alert, oriented X3 Speech: Present: normal - Skin Skin exam: Present: normal color, warm Results - Labs CBC & BMP: 01/28/17 03:58 01/28/17 03:58 - Diagnostic Findings Procedure: Chest x-ray: image reviewed by me, report reviewed by me, X-ray: image reviewed by me, report reviewed by me (abdomen)
--- NOTE | 2017-01-28 15:12 | Event Note ---
This is an addendum to Khalida Larios's note on Dorcas Nam. For some type of technical issue with the computer I am unable to add it directly onto her notes will be placed here Patient was seen and examined and I agree with Khalida Larios's note. Abdominal pain resolved. She is for stress testing tomorrow. LFTs are normalized. No obvious indication for surgery at this time.
--- NOTE | 2017-01-28 17:41 | ECHO Report ---
Dorcas Hunt Exam Date: 01/27/2017 14:02 Referring Physician: Technologist: Arlen Araiza Age: 51 Ht (in): 69 Wt (lb): 255 Gender: F Exam Location: [facility] Echo Indications: abd. pain, elevated troponin, COPD, HTN, DM BP: 137 / 67 HR: 85 Rhythm: Sinus Technical Quality: Fair IMPRESSIONS Normal left ventricular size, systolic function and wall thickness, with no regional wall motion abnormalities. EF 60 % Grade I/IV diastolic dysfunction (abnormal relaxation filling pattern), normal to mildly elevated filling pressures. Normal right ventricular size and systolic function. The right atrium is mildly enlarged. The left atrium is mildly enlarged. Mild mitral valve sclerosis. Mild mitral valve regurgitation. Aortic valve sclerosis. No aortic valve regurgitation. Mild tricuspid valve regurgitation. PAP40 mmHg. Pulmonic valve not well visualized. No pericardial effusion. Normal size aortic root and proximal ascending aorta. MEASUREMENTS (Male / Female) Normal Values 2D ECHO LV Diastolic Diameter PLAX 4.9 cm 4.2 - 5.9 / 3.9 - 5.3 cm LV Systolic Diameter PLAX 2.4 cm LV Fractional Shortening PLAX 52.2 % IVS Diastolic Thickness 1.5 cm 0.6 - 1.0 / 0.6 - 0.9 cm LVPW Diastolic Thickness 1.4 cm 0.6 - 1.0 / 0.6 - 0.9 cm RV Internal Dim ED PLAX 4.3 cm Aortic Root Diameter 3.0 cm LA Systolic Diameter LX 4.5 cm 3.0 - 4.0 / 2.7 - 3.8 cm DOPPLER TR Peak Velocity 238.0 cm/s TR Peak Gradient 22.7 mmHg FINDINGS Left Ventricle Normal left ventricular size, systolic function and wall thickness, with no regional wall motion abnormalities. EF 60 % Grade I/IV diastolic dysfunction (abnormal relaxation filling pattern), normal to mildly elevated filling pressures. Right Ventricle Normal right ventricular size and systolic function. Right Atrium The right atrium is mildly enlarged. Left Atrium The left atrium is mildly enlarged. Mitral Valve Mild mitral valve sclerosis. Mild mitral valve regurgitation. Aortic Valve Aortic valve sclerosis. No aortic valve regurgitation. Tricuspid Valve Morphologically normal tricuspid valve. Mild tricuspid valve regurgitation. PAP40 mmHg. Pulmonic Valve Pulmonic valve not well visualized. Pericardium No pericardial effusion. Aorta Normal size aortic root and proximal ascending aorta. Mesfin Zendejas (Electronically Signed) Final Date: 28 Jan 2017 17:40
[2017-01-28] MEDS: LOVASTATIN 20 MG TABLET PO SCH (22:34)
[2017-01-29 07:13] LABS: Alanine Aminotransferase 54 U/L (13-56); Alkaline Phosphatase 76 U/L (45-117); Aspartate Amino Transferase 15 U/L (0-37); Bilirubin,Direct < 0.10 MG/DL (0.0-0.20)
[2017-01-29 07:14] LABS: Albumin 3.3 G/DL (3.4-5.0); Bilirubin,Indirect 0.7 MG/DL (0.0-1.0); Total Protein 6.5 G/DL (6.4-8.3)
[2017-01-29 07:20] LABS: Basophils % 0.3 % (0.0-0.8); Eosinophils % 0.7 % (0.00-10.9); Hematocrit 32.9 VOL% (35.7-47.0); Hemoglobin 9.7 GM/DL (12.0-16.0); Immature Granulocytes % 0.3 %; Immature Granulocytes Absolute 0.02 #; Lymphocytes # 2.5 10*3/uL (1.4-4.0); Lymphocytes % 42.8 % (21.3-54.2); Mean Corpuscular HGB Conc 29.5 GM/DL (32-36); Mean Corpuscular Hemoglobin 23 PG (27-34); Mean Corpuscular Volume 78.7 FL (87-102); Mean Platelet Volume 9.6 FL (9.6-12.0); Monocytes # 0.6 10*3/uL (0.11-0.8); Monocytes % 9.9 % (1.7-12.7); Neutrophils # 2.7 10*3/uL (1.4-7.4); Platelet Count 354 T/CUMM (130-400); Red Blood Count 4.18 MC/CUMM (3.8-5.5); White Blood Count 5.9 T/CUMM (4-12)
[2017-01-29] MEDS ORDERED: PANTOPRAZOLE 40 MG TABLET PO SCH (09:00)
[2017-01-29] MEDS: INSULIN REGULAR 100 UNIT/ML SUBCUT SCH ×3 (09:53→17:29)
[2017-01-29] MEDS: LOSARTAN 50 MG TABLET PO SCH (09:58)
[2017-01-29] MEDS: FLUTICASONE/SALMETEROL 500-50 DISKUS 14 DOSE INH SCH (09:58)
[2017-01-29] MEDS: DOCUSATE SODIUM 100 MG CAPSULE PO SCH (09:58)
[2017-01-29] MEDS: glyBURIDE 5 MG TABLET PO SCH (09:58)
[2017-01-29] MEDS: ASPIRIN EC 81 MG TABLET PO SCH (09:58)
[2017-01-29] MEDS: amLODIPine 10 MG TABLET PO SCH (09:59)
[2017-01-29] MEDS: FERROUS SULFATE 325 MG TABLET PO SCH (09:59)
[2017-01-29] MEDS: ASCORBIC ACID 500 MG TABLET PO SCH (09:59)
[2017-01-29] MEDS: METOPROLOL TARTRATE 50 MG TABLET PO SCH (09:59)
--- NOTE | 2017-01-29 10:19 | Cardiology Progress Note ---
Assessment and Plan - Time spent with patient Time spent with patient: Greater than 30 minutes (1) Dyslipidemia Status: Chronic Assessment and plan: SEE PLAN OF CARE LISTED BELOW Current Visit: Yes (2) Biliary colic Status: Acute Assessment and plan: SEE PLAN OF CARE LISTED BELOW Current Visit: Yes (3) Diabetes mellitus type 2 in obese Status: Chronic Assessment and plan: SEE PLAN OF CARE LISTED BELOW Current Visit: Yes (4) Hypertension Status: Chronic Assessment and plan: SEE PLAN OF CARE LISTED BELOW Current Visit: Yes (5) COPD (chronic obstructive pulmonary disease) Status: Chronic Assessment and plan: SEE PLAN OF CARE LISTED BELOW Current Visit: Yes (6) Elevated troponin Status: Acute Assessment and plan: SEE PLAN OF CARE LISTED BELOW Current Visit: Yes Cardiology - PN: Subj Interval history: Cardiology note 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 Vazquez in the remote past Ms. Hunt is NPO for stress testing this morning. Denies chest pain, heaviness or tightness during the night. Overall, she is feeling well. Did not sleep well last night and reports this as a chronic condition. seen resting in bed no acute distress. Denies abdominal discomfort overnight. 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 Blood pressure 125/72, heart rate 81 HIDA scan done Friday was read as a normal study Lab data: White count 5.9 hemoglobin 9.7 hematocrit 32.9 Troponin January 27, 2017 - 0.048 and 0.049 Impression/plan: Gallstones with biliary colic - continue current plan of care Normal coronary arteries and ejection fraction 60% by cardiac cath January 2012 Dr. Vazquez--no history of angina, CHF or syncope. For stress test today. Chronic GE reflux - continue Zantac Lifetime non-smoker, nondrinker Type 2 diabetes on glyburide/metformin Chronic hypertension - well contrilled during this hospitalization Chronic dyspnea - stable Sedentary - encouraged activity 5 feet 9 inches tall, 255 pounds Urine culture - no growth Trivial troponin 0.048 and 0.049 Exam (Progress Note) - Constitutional Vitals: Period Temp Pulse Resp BP Sys/Balderrama Pulse Ox Last 24 Hr 97.2 F-98.5 F 62-88 16-20 110-144/61-81 96-100 Exam: General: [Appears well with no apparent distress.] [Pleasant and cooperative. ] [Appears comfortable.] HEENT: [PERRL, normocephalic, atraumatic. Mucous membranes moist. No jaundice noted. Conjunctiva moist and clear, sclerae anicteric] Neck: No JVD/HJR, no thyromegaly or lymphadenopathy noted. No carotid bruit appreciated Cardiac: [Regular rate and rhythm.] [No murmur rub or gallop.] Lungs: [Clear to auscultation without accessory muscle use to assist the respiratory pattern.] Not requiring oxygen Abdomen: Soft, bowel sounds normoactive. Nontender and nondistended. No abdominal bruit or thrill noted. No masses noted. Musculoskeletal: No fluid collection. Decreased range of motion is noted. Extremities: No clubbing, cyanosis noted. [ No edema noted.] Upper extremity pulses 2+. Lower extremity pulses 2+. Capillary refill less than 3 seconds. Skin: No unusual lesions or rashes. No skin breakdown appreciated. Neuro: Awake, alert and oriented 3. Moves all extremities well without hemiparesis or paralysis. No essential tremor is appreciated. Result/EKG - Labs CBC & BMP: 01/29/17 05:08 01/28/17 03:58 Lab Results: I have reviewed the past 24 hour labs Labs: Laboratory Results - last 24 hr 01/28/17 01/28/17 01/28/17 10:52 15:44 19:36 WBC RBC Hgb Hct MCV MCH MCHC RDW Plt Count MPV Neut % (Auto) Lymph % (Auto) [place] % (Auto) Eos % (Auto) Baso % (Auto) Neut # (Auto) Lymph # (Auto) [place] # (Auto) Eos # (Auto) Baso # (Auto) Immature Gran % Nucleated RBC % Immature Gran # Nucleated RBCs # POC Glucose 157 H 164 H 287 H Total Bilirubin Direct Bilirubin Indirect Bilirubin AST ALT Alkaline Phosphatase Total Protein Albumin 01/29/17 01/29/17 01/29/17 05:08 05:08 07:20 WBC 5.9 RBC 4.18 Hgb 9.7 L Hct 32.9 L MCV 78.7 L MCH 23 L MCHC 29.5 L RDW 16.0 Plt Count 354 MPV 9.6 Neut % (Auto) 46.0 Lymph % (Auto) 42.8 [place] % (Auto) 9.9 Eos % (Auto) 0.7 Baso % (Auto) 0.3 Neut # (Auto) 2.7 Lymph # (Auto) 2.5 [place] # (Auto) 0.6 Eos # (Auto) 0.0 Baso # (Auto) 0.0 Immature Gran % 0.3 Nucleated RBC % 0.0 Immature Gran # 0.02 Nucleated RBCs # 0.00 POC Glucose 163 H Total Bilirubin 0.80 Direct Bilirubin < 0.10 Indirect Bilirubin 0.7 AST 15 ALT 54 Alkaline Phosphatase 76 Total Protein 6.5 Albumin 3.3 L - EKG EKG results: interpreted by me EKG shows: sinus rhythm Specialty Discharge - Follow Up or Referrals Follow up with: Renan Dominguez MD [Physician] -
--- NOTE | 2017-01-29 10:22 | Event Note ---
Patient underwent nuclear stress testing, achieving target heart rate in approximately 5 minutes. She achieved stage II Duran protocol. Poor exercise tolerance noted. Significant dyspnea on exertion with chest tightness only at target heart rate, resolved at rest. No ST changes noted. PVC noted in the recovery phase. Blood pressure responded appropriately during the procedure. Now, patient is being transitioned to nuclear medicine for completion of final scan. Dr. Zendejas to read, interpreted and advise.
--- NOTE | 2017-01-29 10:24 | Gastrointestinal Progress Note ---
Assessment and Plan (1) Abdominal pain Status: Acute Assessment and plan: 01/29-No c/o abd pain. Tolerating diet. Post stress test this morning. LFTs normalized. Plan and addendum to follow by Dr Mccray. 01/28-Abd pain resolved, no nausea or vomiting. LFTs trended down to near normal range. For stress test tomorrow. Plan and addendum to follow by DR Mccray. 01/27-sudden onset last night of abdominal pain radiating to back with associated nausea and vomiting. Findings on admission of cholelithiasis without acute cholecystitis, hepatic steatosis. Elevated transaminases, negative hepatitis panel. Normal HIDA scan today. No prior endoscopy. History of anemia on iron replacement therapy. Plan an addendum to followed by Dr. Mccray. Current Visit: Yes Gastroenterology - PN: Subj Interval history: CC: Abd pain Pt is seen awake and alert. States she is feeling a little better at this time. States that she has had no abdominal pain, nausea or vomiting. LFTs are normalized today. She has stress test this morning. Abdomen is soft, nontender. Tolerating her diet well. ROS: Denies SOB or chest pain Exam (Progress Note) - Constitutional Vitals: Period Temp Pulse Resp BP Sys/Balderrama Pulse Ox Last 24 Hr 97.2 F-98.5 F 62-88 16-20 110-144/61-81 96-100 General appearance: normal weight, no acute distress - Head Head exam: Present: normal inspection, normocephalic - Eye Eye exam: Present: other (lids and conjunctiva unremarkable ). Absent: scleral icterus - ENT ENT exam: Present: normal exam, normal oropharynx - Neck Neck exam: Present: normal inspection - Respiratory Respiratory exam: Present: clear to auscultation bilaterally. Absent: rales, rhonchi, wheezes - Cardiovascular Cardiovascular exam: Present: regular rate and rhythm. Absent: diastolic murmur , JVD, systolic murmur - GI/Abdominal GI/Abdominal exam: Present: normal bowel sounds, soft. Absent: ascites, distended, mass, organomegaly, tenderness - Extremities Exam Extremities exam: Present: normal inspection, full ROM - Back Exam Back exam: Present: normal inspection - Neurological Exam Neurological exam: Present: alert, oriented X3 - Psychiatric Psychiatric exam: Present: normal affect, normal mood - Skin Skin exam: Present: normal color, warm, dry Results - Labs CBC & BMP: 01/29/17 05:08 01/28/17 03:58 Lab Results: I have reviewed the past 24 hour labs Specialty Discharge - Follow Up or Referrals Follow up with: Renan Dominguez MD [Physician] -
--- NOTE | 2017-01-29 10:43 | Discharge Summary ---
Hospital Course - Hospital Course Hospital Course: Patient is a 51-year-old female with past medical history of GERD who was admitted for concern of biliary colic. Cholelithiasis was noted without obstruction or evidence of cholecystitis with unremarkable HIDA scan completed. Gastroenterology was was consulted and input appreciated. 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 Cardiology also consulted the patient had a marginally elevated troponin on admission with epigastric and back pain; no cardiac event noted. Considering her extensive family history, she underwent stress test with no additional recommendations from cardiology. Patient was ultimately discharged home in good condition. Diagnosis - Discharge Diagnosis (1) Abdominal pain Status: Acute (2) Hepatomegaly Status: Acute (3) Elevated troponin Status: Acute (4) Anemia Status: Chronic (5) Diabetes mellitus type 2 in obese Status: Chronic (6) Hypertension Status: Chronic (7) COPD (chronic obstructive pulmonary disease) Status: Chronic (8) REEVES (nonalcoholic steatohepatitis) Status: Chronic (9) Biliary colic Status: Acute Specialty Discharge - Follow Up or Referrals Follow up with: Renan Dominguez MD [Physician] - (As needed) Asaf Mccray MD [Physician] - (Per Minnie, BRASS BOBBIN WINDER) Alexsander Zendejas MD [Physician] - (Per [facility] team) Discharge Plan - Discharge Data Disposition: Disch To Home/Self Care Condition at Discharge: Stable (gerd) Discharge Diet: other (See attached) - Discharge Medications New Ferrous Sulfate Tab [Feosol Original Tab] 325 mg PO BID tablet Fluticasone/Salmeterol 500-50 [Advair 500-50] 1 puff INH BID Pantoprazole Tab [Protonix Tab] 40 mg PO DAILY #30 tablet Ascorbic Acid Tab [Vitamin C Tab] 500 mg PO BID tablet Continue Trazodone HCl 100 mg PO BEDTIME Metoprolol Tartrate 50 mg PO BID Lovastatin 10 mg PO BEDTIME Losartan [Cozaar] 50 mg PO BID Metformin HCl 1,000 mg PO BID amLODIPine [Norvasc] 10 mg PO DAILY Aspirin [Aspirin EC] 81 mg PO DAILY glyBURIDE [Glyburide] 10 mg PO BID Discontinued Ferrous Sulfate 325 mg PO DAILY - Follow Up or Referral Follow Up: Renan Dominguez MD [Physician] - (As needed) Asaf Mccray MD [Physician] - (Per Minnie, [employer]BIN WINDER) Alexsander Zendejas MD [Physician] - (Per [facility] team) - Forms/Instructions Instructions: Biliary Colic (GEN), Gallstones (DC), Gallstones (GEN), Non- Alcoholic Fatty Liver Disease (DC), Diet for Ulcers and Gastritis (GEN) Additional Discharge Instructions: Follow up with PCP for hospital f/u 1-2 wks. Exam - Constitutional Vitals: Period Temp Pulse Resp BP Sys/Balderrama Pulse Ox Last 24 Hr 97.2 F-98.5 F 62-88 16-20 110-144/61-81 96-100 General appearance: no acute distress - Head Head exam: Present: normal inspection - Eye Eye exam: Absent: conjunctival injection, scleral icterus - Respiratory Respiratory exam: Present: clear to auscultation bilaterally - Cardiovascular Cardiovascular exam: Present: regular rate and rhythm - GI/Abdominal GI/Abdominal exam: Present: normal bowel sounds, soft. Absent: distended, tenderness - Extremities Exam Extremities exam: Absent: calf tenderness, edema - Back Exam Back exam: Absent: CVA tenderness (L), CVA tenderness (R) - Neurological Exam Neurological exam: Present: alert, oriented X3 - Psychiatric Psychiatric exam: Present: normal affect, normal mood - Skin Skin exam: Present: normal color, warm Discharge Results Procedures and tests throughout hospitalization: Pending Orders 01/27/17 11:19 Helicobacter pylori Ag Feces Routine 01/29/17 NM ruiz perf SPECT rest or str Routine Exercise stress - poor exercise tolerance. Nuclear stress - results and recs pending. Urine cultre: no growth at 48 hrs Labs on day of discharge: Labs from last 24 hours 01/29/17 01/29/17 01/29/17 07:20 05:08 05:08 WBC 5.9 RBC 4.18 Hgb 9.7 L Hct 32.9 L MCV 78.7 L MCH 23 L MCHC 29.5 L RDW 16.0 Plt Count 354 MPV 9.6 Neut % (Auto) 46.0 Lymph % (Auto) 42.8 [place] % (Auto) 9.9 Eos % (Auto) 0.7 Baso % (Auto) 0.3 Neut # (Auto) 2.7 Lymph # (Auto) 2.5 [place] # (Auto) 0.6 Eos # (Auto) 0.0 Baso # (Auto) 0.0 Immature Gran % 0.3 Nucleated RBC % 0.0 Immature Gran # 0.02 Nucleated RBCs # 0.00 POC Glucose 163 H Total Bilirubin 0.80 Direct Bilirubin < 0.10 Indirect Bilirubin 0.7 AST 15 ALT 54 Alkaline Phosphatase 76 Total Protein 6.5 Albumin 3.3 L 01/28/17 01/28/17 01/28/17 19:36 15:44 10:52 WBC RBC Hgb Hct MCV MCH MCHC RDW Plt Count MPV Neut % (Auto) Lymph % (Auto) [place] % (Auto) Eos % (Auto) Baso % (Auto) Neut # (Auto) Lymph # (Auto) [place] # (Auto) Eos # (Auto) Baso # (Auto) Immature Gran % Nucleated RBC % Immature Gran # Nucleated RBCs # POC Glucose 287 H 164 H 157 H Total Bilirubin Direct Bilirubin Indirect Bilirubin AST ALT Alkaline Phosphatase Total Protein Albumin - Imaging and Cardiology Procedure: Abdominal x-ray: image reviewed by me, report reviewed by me, Chest x -ray: image reviewed by me, report reviewed by me, Ultrasound: image reviewed by me, report reviewed by me - Additional Comments HIDA unremarkable Echo:NL LV size, function and wall thickness - EF 60% DS: Provider Date of admission: 01/27/17 05:45 Primary care physician: . No PCP Attending physician on admission: Renan Dominguez MD Consults: 01/27/17 06:49 Consult to Case Mgmt/Social Srvs [CONS] Routine Reason for Case Mgmt/Social Srvs: Rehab Other Consult Comment: Home situation 01/27/17 09:28 Consult to Physician [CONS] Routine Comment: elevated troponin; abd pain Consulting Provider: Alexsander Zendejas Consulting Provider Notified: Yes When should Consulting Provider be notified: Now Person Notified: Arlen called Date Notified: 01/27/17 Time Notified: 09:50 01/27/17 11:20 Consult to Physician [CONS] Routine Comment: epigastric pain r/o gastritis; hepatic steatosis Consulting Provider: Asaf Mccray Consulting Provider Notified: Yes When should Consulting Provider be notified: Now Person Notified: minnie called & will give msg Date Notified: 01/27/17 Time Notified: 13:53 01/27/17 11:47 Consult to Pastoral Services [CONS] Routine Comment: Pastoral Screen: Request Security Intelligence Analyst Visit Pastoral Screen Source of Request: Patient Discharging clinician: Lisette Larios PA-C
--- NOTE | 2017-01-29 16:08 | Cardiology Progress Note ---
Assessment and Plan (1) Abdominal pain Status: Acute Current Visit: Yes (2) Diabetes mellitus type 2 in obese Status: Chronic Current Visit: Yes (3) Hypertension Status: Chronic Current Visit: Yes Cardiology - PN: Subj Interval history: Cardiology note normal Exercise cardiac stress test today. No scar or ischemia. Ejection fraction 57%. This is a low risk scan. Noncardiac chest pain. Poor work capacity. Findings reviewed with patient and she has been reassured. Plan Agree with discharge Exam (Progress Note) - Constitutional Vitals: Period Temp Pulse Resp BP Sys/Balderrama Pulse Ox Last 24 Hr 97.2 F-98.0 F 69-88 16-20 110-150/61-85 96-100 Result/EKG - Labs CBC & BMP: 01/29/17 05:08 01/28/17 03:58 Labs: Laboratory Results - last 24 hr 01/28/17 01/29/17 01/29/17 19:36 05:08 05:08 WBC 5.9 RBC 4.18 Hgb 9.7 L Hct 32.9 L MCV 78.7 L MCH 23 L MCHC 29.5 L RDW 16.0 Plt Count 354 MPV 9.6 Neut % (Auto) 46.0 Lymph % (Auto) 42.8 [place] % (Auto) 9.9 Eos % (Auto) 0.7 Baso % (Auto) 0.3 Neut # (Auto) 2.7 Lymph # (Auto) 2.5 [place] # (Auto) 0.6 Eos # (Auto) 0.0 Baso # (Auto) 0.0 Immature Gran % 0.3 Nucleated RBC % 0.0 Immature Gran # 0.02 Nucleated RBCs # 0.00 POC Glucose 287 H Total Bilirubin 0.80 Direct Bilirubin < 0.10 Indirect Bilirubin 0.7 AST 15 ALT 54 Alkaline Phosphatase 76 Total Protein 6.5 Albumin 3.3 L 01/29/17 01/29/17 01/29/17 07:20 11:08 15:29 WBC RBC Hgb Hct MCV MCH MCHC RDW Plt Count MPV Neut % (Auto) Lymph % (Auto) [place] % (Auto) Eos % (Auto) Baso % (Auto) Neut # (Auto) Lymph # (Auto) [place] # (Auto) Eos # (Auto) Baso # (Auto) Immature Gran % Nucleated RBC % Immature Gran # Nucleated RBCs # POC Glucose 163 H 223 H 190 H Total Bilirubin Direct Bilirubin Indirect Bilirubin AST ALT Alkaline Phosphatase Total Protein Albumin Specialty Discharge - Follow Up or Referrals Follow up with: Renan Dominguez MD [Physician] - (As needed) Asaf Mccray MD [Physician] - (Per Porsche, COMPUTER PROJECT MANAGER) Alexsander Zendejas MD [Physician] - (Per [facility] team)
[2017-01-29 16:38] VITALS: BP 145/69
--- NOTE | 2017-01-29 19:57 | Nuclear Medicine Report ---
PROCEDURE: EXERCISE CARDIOLITE GATED SPECT PERFUSION STUDY REFERRING PHYSICIAN: Dr. Renan Dominguez DATE: 01/29/2017 INITIAL IMPRESSION: 1. A 51-YEAR-OLD WITH ATYPICAL CHEST PAIN. 2. HYPERTENSION. 3. ABNORMAL EKG. FINAL IMPRESSION: NORMAL EXERCISE CARDIOLITE GATED SPECT PERFUSION STUDY. I. DESCRIPTION OF PROCEDURE: The patient received 10.0 mCi of Technetium-99m Cardiolite IV and res t images were obtained in the routine manner 20 minutes later. The patient then walked for 5 minute s and 6 seconds on the standard Duran protocol and achieved peak heart rate of 150, which is 88% of her predicted maximal heart rate. At peak exercise, 30.0 mCi of Technetium-99m and Cardiolite IV wa s injected and stress image was obtained in the routine manner 20 minutes later. Serial electrocard iograms were performed. The initial blood pressure was 138/82 and it was 166/70 immediate post exer cise. II. RESULTS: The patient had no chest pain or arrhythmias, but did develop dyspnea during the exer cise walk. The resting EKG demonstrated normal sinus rhythm with poor R-wave progression across the precordium and ST-T wave changes. With exercise, no diagnostic EKG changes occurred. No arrhythmi as. Tomographic imaging demonstrates homogeneous uptake of radioisotopes in all segments. There is no e vidence for ischemia or scar. Gated SPECT image demonstrates normal wall motion and thickening in a ll segments. The calculated ejection fraction is 57%. III. FINAL IMPRESSION: 1. CLINICALLY AND ELECTROGRAPHICALLY NEGATIVE. 2. POOR WORK CAPACITY. 3. SCINTIGRAPHICALLY NORMAL PERFUSION STUDY. IV. DISPOSITION: The patient should be reassured regarding the lack of any evidence for significan t coronary artery disease at this time. She had no chest pain or diagnostic EKG changes and tomogra phic imaging is normal. In addition, ventricular function is well preserved with ejection fraction of 57%. This is a low-risk scan. Continued medical therapy and risk factor modification recommende d. Procedure performed and interpreted at [facility] Department of Radiology. CC: Dr. Renan Dominguez
== END 2017-01-29 17:05 | disposition home or self-care (01) | DRG 446 ==
LOC: EDUNIT# → N.ED 02:06 → N.EDINP 05:45 → N.3E 06:46
PROVIDERS: ADMIT Surgery; ATTEND Surgery